=== PATIENT | female | born 1990 | race Caucasian/White ===

== ENCOUNTER 2017-04-11 15:52 | Emergency (ER) | payer SELFPAY ==
[~2017-04-11] VITALS: Ht 154.9 cm; Wt 60.0 kg
[2017-04-11] MEDS ORDERED: NALOXONE HCL 2 MG/2 ML VIAL ONE ×2 (16:02→16:03)
[2017-04-11] MEDS ORDERED: SODIUM CHLOR 0.9% 1000 ML INJ 1,000 ML IV SCH (16:05)
[2017-04-11 16:07] VITALS: BP 123/68; PULSE 108; RESP 15; TEMP 98.4; O2SAT 100
[2017-04-11] MEDS ORDERED: NALOXONE HCL 2 MG/2 ML VIAL IV ONE (16:15)
[2017-04-11] MEDS ORDERED: SODIUM CHLORIDE 0.9% FLUSH 5 ML FLUSH IV FLUSH PRN (16:15)
[2017-04-11 16:54] LABS: AUTOMATED NEUTROPHIL # 10.3 TH/MM3 (1.8-7.7); BASOPHIL # 0.1 TH/MM3 (0-0.2); BASOPHIL % 0.4 % (0.0-2.0); EOSINOPHIL # 0.2 TH/MM3 (0-0.4); EOSINOPHIL % 0.6 % (0.0-4.0); HEMATOCRIT 40.6 % (35.0-46.0); LYMPHOCYTE # 12.6 TH/MM3 (1.0-4.8); MEAN CELL VOLUME 81.4 FL (80.0-100.0); MEAN CORPUSCULAR HEMOGLOBIN 26.5 PG (27.0-34.0); MEAN CORPUSCULAR HGB CONC 32.6 % (32.0-36.0); MONO % 8.2 % (0.0-8.0); NEUT % 40.8 % (16.0-70.0); PLATELET COUNT 485 TH/MM3 (150-450); RED BLOOD COUNT 4.99 MIL/MM3 (4.00-5.30); RED CELL DISTRIBUTION WIDTH 13.4 % (11.6-17.2); WHITE BLOOD COUNT 25.3 TH/MM3 (4.0-11.0)
[2017-04-11 16:56] LABS: HEMO FLAGS AUTO DIFF
[2017-04-11 17:04] LABS: ANION GAP 9 MEQ/L (5-15)
--- NOTE | 2017-04-11 17:06 | PD ---
HPI Chief Complaint: OD/ Ingestion Time Seen by Provider: 16:05 Travel History International Travel<30 days: No Contact w/Intl Traveler<30days: No Traveled to known affect area: No History of Present Illness HPI Patient is a young adult female who was brought to the ER by her friend. The patient had become minimally responsive and was emergently triaged from the front door to the delta pod. There she was found to be cyanotic and apneic with a GCS of 3. Oxygen started. Narcan was immediately administered after an IV was established and the patient became AO 3 within about 60 seconds of Narcan administration. The patient reports using IV opioids today. Upon awakening the patient reported IV drug abuse today. She seldom has used IV drugs before. [facility] Past Medical History Anxiety: Yes Diminished Hearing: No LMP: march 2017 Past Surgical History Surgical History: No Previous Surgery Social History Alcohol Use: No Tobacco Use: No Substance Use: Yes (opiate ) Allergies-Medications (Allergen,Severity, Reaction): Coded Allergies: No Known Allergies (Unverified , 04/11/17) Review of Systems ROS Limitations: Clinical Condition Physical Exam Narrative GENERAL: Minimally responsive young adult female SKIN: Focused skin assessment warm/dry. Perioral cyanosis. HEAD: Atraumatic. Normocephalic. EYES: Pupils equal and round. No scleral icterus. No injection or drainage. ENT: No nasal bleeding or discharge. Mucous membranes pink and moist. NECK: Trachea midline. No JVD. CARDIOVASCULAR: Regular rate and rhythm. No murmur appreciated. RESPIRATORY: Breath sounds present bilaterally. Respiratory rate 4-6. GASTROINTESTINAL: Abdomen soft, non-tender, nondistended. Hepatic and splenic margins not palpable. MUSCULOSKELETAL: No obvious deformities. No clubbing. No cyanosis. No edema. NEUROLOGICAL: GCS 3 PSYCHIATRIC: Unable to assess Data Data Last Documented VS Vital Signs Date Time Temp Pulse Resp B/P (MAP) Pulse Ox O2 Delivery O2 Flow Rate FiO2 04/11/17 16:12 (86) Room Air 04/11/17 16:12 100 04/11/17 16:07 108 21 Temperature 98.4 Blood pressure 123/68 Orders Orders Naloxone Inj (Narcan Inj) (04/11/17 16:02) Naloxone Inj (Narcan Inj) (04/11/17 16:03) Basic Metabolic Panel (Bmp) (04/11/17 16:05) Complete Blood Count With Diff (8/24/17 16:05) Blood Glucose (04/11/17 16:05) Ecg Monitoring (04/11/17 16:05) Iv Access Insert/Monitor (04/11/17 16:05) Oximetry (04/11/17 16:05) Oxygen Administration (04/11/17 16:05) Naloxone Inj (Narcan Inj) (04/11/17 16:15) Sodium Chloride 0.9% Flush (Ns Flush) (04/11/17 16:15) Sodium Chlor 0.9% 1000 Ml Inj (Ns 1000 M (04/11/17 16:05) Drug Screen, Random Urine (04/11/17 16:05) Alcohol (Ethanol) (04/11/17 16:05) Tylenol (Acetaminophen) (04/11/17 16:05) Salicylates (Aspirin) (04/11/17 16:05) Labs Laboratory Tests Test 04/11/17 16:30 White Blood Count 25.3 TH/MM3 Red Blood Count 4.99 MIL/MM3 Hemoglobin 13.2 GM/DL Hematocrit 40.6 % Mean Corpuscular Volume 81.4 FL Mean Corpuscular Hemoglobin 26.5 PG Mean Corpuscular Hemoglobin Concent 32.6 % Red Cell Distribution Width 13.4 % Platelet Count 485 TH/MM3 Mean Platelet Volume 8.2 FL Neutrophils (%) (Auto) 40.8 % Lymphocytes (%) (Auto) 50.0 % Monocytes (%) (Auto) 8.2 % Eosinophils (%) (Auto) 0.6 % Basophils (%) (Auto) 0.4 % Neutrophils # (Auto) 10.3 TH/MM3 Lymphocytes # (Auto) 12.6 TH/MM3 Monocytes # (Auto) 2.1 TH/MM3 Eosinophils # (Auto) 0.2 TH/MM3 Basophils # (Auto) 0.1 TH/MM3 CBC Comment AUTO DIFF Blood Urea Nitrogen 9 MG/DL Creatinine 1.11 MG/DL Random Glucose 196 MG/DL Calcium Level 8.8 MG/DL Sodium Level 135 MEQ/L Potassium Level 3.3 MEQ/L Chloride Level 103 MEQ/L Carbon Dioxide Level 23.4 MEQ/L Anion Gap 9 MEQ/L Estimat Glomerular Filtration Rate 42 ML/MIN Salicylates Level LESS THAN 1.7 MG/DL Acetaminophen Level LESS THAN 2.0 MCG/ML Ethyl Alcohol Level LESS THAN 3 MG/DL MDM Medical Decision Making Medical Screen Exam Complete: Yes Emergency Medical Condition: Yes Differential Diagnosis Apnea, cyanosis, anoxic brain injury, opiate overdose Narrative Course Patient immediately received Narcan with good effect. GCS 15 within about 1 minute. She'll be kept on continuous cardiac pulmonary monitoring. Oncoming provider to reassess patient and disposition appropriately. If after one hour patient is brisk and alert discharge will be considered reasonable. Pranav Mart MD Apr 11, 2017 17:06
[2017-04-11 17:11] LABS: BICARBONATE 23.4 MEQ/L (21.0-32.0); BLOOD UREA NITROGEN 9 MG/DL (7-18); CHLORIDE 103 MEQ/L (98-107); GLOMERULAR FILTRATION RATE 42 ML/MIN (>89); POTASSIUM 3.3 MEQ/L (3.5-5.1); SODIUM (NA) 135 MEQ/L (136-145)
[2017-04-11 17:20] LABS: ACETAMINOPHEN LESS THAN 2.0 MCG/ML (10.0-30.0); ALCOHOL LESS THAN 3 MG/DL (0-5)
--- NOTE | 2017-04-11 17:45 | PD ---
Physical Exam Date Seen by Provider: Apr 11, 2017 Narrative GENERAL: SKIN: Warm and dry. HEAD: Atraumatic. Normocephalic. EYES: Pupils equal and round. No scleral icterus. No injection or drainage. ENT: No nasal bleeding or discharge. Mucous membranes pink and moist. NECK: Trachea midline. No JVD. CARDIOVASCULAR: Regular rate and rhythm. RESPIRATORY: No accessory muscle use. Clear to auscultation. Breath sounds equal bilaterally. GASTROINTESTINAL: Abdomen soft, non-tender, nondistended. MUSCULOSKELETAL: Extremities without clubbing, cyanosis, or edema. No obvious deformities. NEUROLOGICAL: Awake and alert. No obvious cranial nerve deficits. Motor grossly within normal limits. Five out of 5 muscle strength in the arms and legs. Normal speech. PSYCHIATRIC: Appropriate mood and affect; insight and judgment normal. Data Data Last Documented VS Vital Signs Date Time Temp Pulse Resp B/P (MAP) Pulse Ox O2 Delivery O2 Flow Rate FiO2 04/11/17 16:12 (86) Room Air 04/11/17 16:12 100 04/11/17 16:07 108 21 Orders Orders Naloxone Inj (Narcan Inj) (04/11/17 16:02) Naloxone Inj (Narcan Inj) (04/11/17 16:03) Basic Metabolic Panel (Bmp) (04/11/17 16:05) Complete Blood Count With Diff (04/11/17 16:05) Blood Glucose (04/11/17 16:05) Ecg Monitoring (04/11/17 16:05) Iv Access Insert/Monitor (04/11/17 16:05) Oximetry (04/11/17 16:05) Oxygen Administration (04/11/17 16:05) Naloxone Inj (Narcan Inj) (04/11/17 16:15) Sodium Chloride 0.9% Flush (Ns Flush) (04/11/17 16:15) Sodium Chlor 0.9% 1000 Ml Inj (Ns 1000 M (04/11/17 16:05) Drug Screen, Random Urine (04/11/17 16:05) Alcohol (Ethanol) (04/11/17 16:05) Tylenol (Acetaminophen) (04/11/17 16:05) Salicylates (Aspirin) (04/11/17 16:05) Labs Laboratory Tests Test 04/11/17 16:30 White Blood Count 25.3 TH/MM3 Red Blood Count 4.99 MIL/MM3 Hemoglobin 13.2 GM/DL Hematocrit 40.6 % Mean Corpuscular Volume 81.4 FL Mean Corpuscular Hemoglobin 26.5 PG Mean Corpuscular Hemoglobin Concent 32.6 % Red Cell Distribution Width 13.4 % Platelet Count 485 TH/MM3 Mean Platelet Volume 8.2 FL Neutrophils (%) (Auto) 40.8 % Lymphocytes (%) (Auto) 50.0 % Monocytes (%) (Auto) 8.2 % Eosinophils (%) (Auto) 0.6 % Basophils (%) (Auto) 0.4 % Neutrophils # (Auto) 10.3 TH/MM3 Lymphocytes # (Auto) 12.6 TH/MM3 Monocytes # (Auto) 2.1 TH/MM3 Eosinophils # (Auto) 0.2 TH/MM3 Basophils # (Auto) 0.1 TH/MM3 CBC Comment AUTO DIFF Blood Urea Nitrogen 9 MG/DL Creatinine 1.11 MG/DL Random Glucose 196 MG/DL Calcium Level 8.8 MG/DL Sodium Level 135 MEQ/L Potassium Level 3.3 MEQ/L Chloride Level 103 MEQ/L Carbon Dioxide Level 23.4 MEQ/L Anion Gap 9 MEQ/L Estimat Glomerular Filtration Rate 42 ML/MIN Salicylates Level LESS THAN 1.7 MG/DL Acetaminophen Level LESS THAN 2.0 MCG/ML Ethyl Alcohol Level LESS THAN 3 MG/DL [facility] Medical Record Reviewed: Yes Supervised Visit with EVETTE: No Diagnosis Primary Impression: opiate overdose (s/p response to narcan) Patient Instructions: Adult Overdose (ED), General Instructions Disposition: 01 DISCHARGE HOME Condition: Stable Seymour Ortega MD Apr 11, 2017 17:45
[2017-04-11 17:59] LABS: NEUTROPHIL # MANUAL DIFF 10.6 TH/MM3 (1.8-7.7); POLYS (SEG NEUTROPHILS) 42 % (16-70); SCAN/DIFF FINAL DIFF MANUAL; WBC DIFF SAMPLE 100
[2017-04-11 18:00] LABS: PLATELET ESTIMATE SMEAR NORMAL (NORMAL); PLATELET MORPHOLOGY NORMAL (NORMAL)
== END 2017-04-11 17:53 | disposition home or self-care (01) ==
LOC: EDBD 15:52 → NEPD 15:52
DX: T40.1X1A Poisoning by heroin, accidental (unintentional), initial encounter (principal); F41.9 Anxiety disorder, unspecified
CPT/HCPCS: 80048; 80307; 85007; 85027; 99283; J7030; J2310

== ENCOUNTER 2017-05-31 02:05 | Emergency (ER) | payer BC ==
[~2017-05-31] VITALS: Ht 154.9 cm; Wt 60.0 kg
[2017-05-31 02:07] VITALS: BP 142/81; PULSE 98; RESP 15; TEMP 98.1; O2SAT 97
[2017-05-31] MEDS ORDERED: HYDR-3533 PO (02:35)
[2017-05-31] MEDS ORDERED: CLIN150 PO (02:35)
[2017-05-31] MEDS ORDERED: CLINDAMYCIN INJ 600 MG in SODIUM CHLORIDE 0.9% INJ 100 ML IV ONE (02:45)
[2017-05-31] MEDS ORDERED: LIDOCAINE HCL 1% 50 ML VIAL INFIL ONE (02:45)
--- NOTE | 2017-05-31 03:21 | PD ---
HPI Chief Complaint: Skin Problem Time Seen by Provider: 02:33 Travel History International Travel<30 days: No Contact w/Intl Traveler<30days: No Traveled to known affect area: No History of Present Illness HPI 27-year-old white female IV drug abuser presents to emergency Department with complaints of an abscess to her left arm over the past week. She admits to injecting heroin. Her left antecubital fossa has become red, swollen and tender. She's having difficulty bending her arm. She denies any numbness or tingling. No fever chills. Symptoms are moderate. No alleviating factors. Exacerbated by IV substance abuse up-to-date with immunizations. PFSH Past Medical History Narrative Medical Intravenous drug abuse, anxiety Anxiety: Yes Diminished Hearing: No Tetanus Vaccination: < 5 Years Influenza Vaccination: No ?: Not LMP: IRREGULAR Past Surgical History Surgical History: No Previous Surgery Social History Alcohol Use: No Tobacco Use: Yes Substance Use: Yes (opiate, heroin ) Allergies-Medications (Allergen,Severity, Reaction): Coded Allergies: No Known Allergies (Unverified , 05/31/17) Reported Meds & Prescriptions Reported Meds & Active Scripts Active Lortab (Hydrocodone-Acetaminophen) 5-325 Mg Tab 1 Tab PO Q6H PRN Cleocin (Clindamycin HCl) 150 Mg Cap 300 Mg PO Q6H 10 Days Review of Systems Except as stated in HPI: all other systems reviewed are Neg General / Constitutional: No: Fever Eyes: No: Diploplia, Blurred Vision HENT: No: Headaches, Neck Pain Cardiovascular: No: Chest Pain or Discomfort, Palpitations Respiratory: No: Cough, Shortness of Breath Gastrointestinal: No: Nausea, Vomiting Musculoskeletal: Positive: Arthralgias, Limited ROM, Edema, Pain Skin: Positive Rash, Positive Lumps Neurologic: No: Weakness, Headache Physical Exam Narrative GENERAL: This is a well-nourished, well-developed patient, in no apparent distress. SKIN: Patient has a large abscess to the left lateral antecubital fossa. This measures approximately 5 x 5 cm. It is erythematous, warm and tender. Positive fluctuance and no pointing., ecchymoses or lesions. Warm and dry. HEAD: Atraumatic. Normocephalic. EYES: PERRL, EOMI, no discharge or injection. No scleral icterus. EARS: Clear NOSE: Nasal turbinates appear normal. THROAT: Mucosa pink and moist. Airway patent. NECK: Trachea midline. supple, moves head freely. LUNGS: Clear to auscultation. CV: Regular in rhythm. ABDOMEN: Soft nontender. EXT: No clubbing cyanosis or edema. Data Data Last Documented VS Vital Signs Date Time Temp Pulse Resp B/P (MAP) Pulse Ox O2 Delivery O2 Flow Rate FiO2 05/31/17 02:07 98.1 98 15 142/81 (101) 97 Room Air Orders Orders Iv Access Insert/Monitor (05/31/17 02:25) Wound Culture And Gram Stain (05/31/17 02:25) Lactic Acid (05/31/17 02:25) Clindamycin Inj (Cleocin Inj) (05/31/17 02:45) Lidocaine 1% Inj (50 Ml) (Xylocaine 1% I (05/31/17 02:45) Labs Laboratory Tests Test 05/31/17 02:41 MDM Medical Decision Making Medical Screen Exam Complete: Yes Emergency Medical Condition: Yes Medical Record Reviewed: Yes Differential Diagnosis MDM: High Differential diagnoses: Abscess, folliculitis, cellulitis, lymphangitis, abrasion, contact dermatitis Narrative Course IV access is obtained. Lactic sent, patient's given 600 mg of clindamycin IV. An incision and drainage has been performed. Procedures Procedure Narrative I&D abscess: After the risks and benefits were discussed the following procedure was performed. The skin is prepped and draped in the usual sterile fashion using Betadine. The abscess is anesthetized with 1% lidocaine. After adequate anesthesia, an 10 blade scalpel is used to make a 3 centimeter central incision. Perulant material is expressed and cultured. Loculations are broken up using curved Ev forceps. The wound is cleansed deeply using dilute Betadine and peroxide on Q-tips. The wound is packed open using iodoform gauze. A clean dressing is applied. The patient tolerated the procedure well. There was no complications. Follow-up instructions were given to the patient. Diagnosis Primary Impression: lEFT ANTECUBITAL FOSSA ABSCESS Additional Impression: Intravenous drug abuse Patient Instructions: General Instructions Additional Instructions: Rest. Elevation. keep clean and dry. remove the packing in two days. Daily wound care with soap, water and Neosporin. Three Advil every 6 hours. Clindamycin and Lortab. Recheck in the ER in the next 48 hours. Follow-up with a primary care doctor in one week. Return to the ER for any problems. Med/Other Pt SpecificInfo: Prescription(s) given Scripts Hydrocodone-Acetaminophen (Lortab) 5-325 Mg Tab 1 TAB PO Q6H Y for PAIN, #10 TAB 0 Refills Prov: Darren Henderson MD 05/31/17 Clindamycin (Cleocin) 150 Mg Cap 300 MG PO Q6H for Infection for 10 Days, #80 CAP 0 Refills Prov: Darren Henderson MD 05/31/17 Disposition: 01 DISCHARGE HOME Condition: Stable Lawrence Burgos May 31, 2017 03:21
[2017-05-31 03:32] VITALS: BP 135/75
== END 2017-05-31 04:28 | disposition home or self-care (01) ==
LOC: NEPD 02:05
DX: L02.414 Cutaneous abscess of left upper limb (principal); F41.9 Anxiety disorder, unspecified; F17.200 Nicotine dependence, unspecified, uncomplicated; F19.10 Other psychoactive substance abuse, uncomplicated
CPT/HCPCS: 10061; 83605; 86403; 87070; 87186; 96365